=== PATIENT | male | born 2000 | race Hispanic/Latino ===

== ENCOUNTER 2023-05-24 20:14 | Emergency (ER) | payer SELFPAY ==
[2023-05-24] MEDS ORDERED: Oxymetazoline HCl 0.05% (30 ML BOT) ONE (21:38)
== END 2023-05-24 21:59 | disposition home or self-care (01) ==
LOC: NAV ERS 20:14
DX: S00.33XA Contusion of nose, initial encounter (principal); R04.0 Epistaxis; W22.8XXA Striking against or struck by other objects, initial encounter
CPT/HCPCS: 70160